=== PATIENT | female | born 1955 | race Caucasian/White ===

== ENCOUNTER 2021-11-27 07:44 | Emergency (ER) | payer MEDICARE, BC ==
[2021-11-27] MEDS ORDERED: Sodium Chloride 0.9% 10 ML Syringe FLUSH PRN (08:21)
[2021-11-27] MEDS ORDERED: Metoprolol Tartrate 5 MG/5 ML SDV IVPUSH ONE ×2 (08:27→09:17)
[2021-11-27] MEDS ORDERED: Sodium Chloride 0.9% 1,000 ML IV SCH (08:30)
[2021-11-27] MEDS ORDERED: Metoprolol Tartrate 5 MG/5 ML SDV ONE (09:10)
== END 2021-11-27 10:24 | disposition home or self-care (01) ==
LOC: LL.ED 07:44
DX: I48.91 Unspecified atrial fibrillation (principal); Z79.01 Long term (current) use of anticoagulants
CPT/HCPCS: 36415; 80053; 85025; 93005; 93010; 96374; 99284; 99285; J3490; J7030